=== PATIENT | male | born 1970 | race Caucasian/White ===

== ENCOUNTER 2016-09-04 17:00 | Inpatient (IN) | payer SELFPAY ==
[2016-09-04] MEDS ORDERED: NORMAL SALINE 10 ML SYRINGE FLUSH IVP PRN ×2 (17:27→21:33)
[2016-09-04] MEDS ORDERED: Sodium Chloride 0.9% 1,000 ML PRIMARY IV ONE (17:27)
[2016-09-04] MEDS ORDERED: ONDANSETRON 4 MG/2 ML VIAL IVP ONE (17:27)
[2016-09-04] MEDS ORDERED: fentaNYL Inj 100 MCG/2 ML VIAL IVP ONE (17:27)
[2016-09-04] MEDS ORDERED: LIDOCAINE HCL 2 % 10 ML JELLY URO-JECT TOPICAL ONE (17:36)
[2016-09-04 17:39] LABS: BASOPHILS # (AUTO) 0.03 10*3/UL; BASOPHILS % (AUTO) 0.2 % (0-1); EOSINOPHILS # (AUTO) 0.07 10*3/UL; EOSINOPHILS % (AUTO) 0.5 % (0-8); HEMATOCRIT 42.4 % (42.0-52.0); HEMOGLOBIN 14.8 g/dL (14.0-18.0); LYMPHOCYTES # (AUTO) 1.75 10*3/uL; MEAN CORPUSCULAR HEMOGLOBIN 27.8 PG (27-31); MEAN CORPUSCULAR HGB CONC 34.9 g/dL (33-37); MEAN CORPUSCULAR VOLUME 79.7 FL (80-90); MEAN PLATELET VOLUME 8.7 FL (7.4-12.2); MONOCYTES # (AUTO) 0.77 10*3/UL (0.3-0.8); NEUTROPHILS # (AUTO) 10.21 10*3/UL; NEUTROPHILS % (AUTO) 79.4 % (50-80); RED BLOOD COUNT 5.32 10^6/uL (4.70-6.10)
[2016-09-04 17:41] LABS: PLATELET MORPHOLOGY COMMENT NORMAL MORPHOLOGY (NORM); RBC MORPHOLOGY COMMENT NORMAL MORPHOLOGY (NORM); WBC MORPHOLOGY COMMENT NORMAL MORPHOLOGY (NORM)
[2016-09-04] MEDS ORDERED: LORazepam 2 MG/1 ML VIAL IVP ONE (17:45)
[2016-09-04 17:52] LABS: BUN/CREATININE RATIO 10.71 (6-20); CALCIUM 9.4 mg/dL (8.7-10.7); SERUM ALBUMIN 3.9 g/dL (3.5-4.8)
[2016-09-04 17:59] LABS: BILIRUBIN,URINE NEGATIVE (NEG); COLOR,URINE YELLOW; GLUCOSE, URINE (UA) NEGATIVE (NEG); NITRATE,URINE NEGATIVE (NEG); OCCULT BLOOD,URINE NEGATIVE (NEG); PH,URINE 6.5 (5.0-8.5); PROTEIN,URINE TRACE mg/dl (NEG); UROBILINOGEN,URINE 0.2 EU/dL (0.2)
[2016-09-04 18:00] LABS: CLARITY,URINE CLEAR (CLEAR)
[2016-09-04 18:11] LABS: URINE SAMPLE TYPE CATH SPECIMEN
--- NOTE | 2016-09-04 18:47 | PDOC ---
Abdomen/Flank HPI - General Chief Complaint: Abdomen Pain Stated Complaint: STOMACH CRAMPING/RECTAL PRESSURE Date Seen by Provider: 09/04/16 Time Seen by Provider: 17:20 Source: POSITIVE: Patient Exam Limitations: POSITIVE: No limitations Nurse's Notes Reviewed & Considered: Yes - History of Present Illness Initial Comments: The patient is a 46-year-old male who presents to the emergency department with abdominal pain. He states that he was diagnosed with diverticulitis about a month ago in [place]. Apparently a CT at that time showed evidence of sigmoid diverticulitis. He was treated with a course of antibiotics and pain medication and improved clinically. He had some recurrent abdominal pain and was seen in the clinic on 08/25/2016. At that time he had not wanted any further testing as he reported he did not have insurance. He was treated empirically for recurrent diverticulitis with a 2 week course of Cipro and Flagyl. He was also given a short prescription of Percocet. He states that he seemed to be improving in regard to his abdominal pain and he states that this morning he felt like "a million dollars". Sometime this early afternoon he had onset of rectal pain and pressure. He also has a sensation that he needs to urinate however has been unable to. He describes the pain as a spasm in his bladder and rectum. He does admit to a history of prostatitis in the past. He also has had a history of kidney stones. - Patient Home Medications Home Medications: Home Medications Benazepril HCl 10 mg PO DAILY tab 08/20/13 Diltiazem HCl 120 mg PO DAILY tab 08/20/13 Ciprofloxacin HCl [Cipro] 500 mg PO BID #28 tab 08/25/16 Gemfibrozil [Lopid] 600 mg PO DAILY tab 08/25/16 Metformin HCl [Metformin Hcl Er] 500 mg PO BID 08/25/16 Metronidazole [Flagyl] 500 mg PO TID #42 tab 08/25/16 - Patient Allergies Allergies/Adverse Reactions: Allergies Allergy/AdvReac Type Severity Reaction Status Date / Time No Known Allergies Allergy Verified 09/04/16 17:14 Past Medical History - heen HEENT History: Denies History Cardiovascular History: Hypertension Respiratory History: Denies History Gastrointestinal History: Denies History Genitourinary History: Denies History Endocrine History: Denies History Musculoskeletal History: Denies History Prosthesis or Implant: No Neurological History: Denies History Blood Disorders: Denies History Psychiatric History: Denies History History of Sexually Transmitted Diseases: No Cancer History: Denies History In Past Year Been Physically Harmed or Verbally Threatened: No History of MDRO: No History of Other Communicable Diseases: No Tobacco Use: Former Smoker Alcohol Use: None Substance Use Type: None Previous Surgical History: No Type / Date of Surgery: right wrist Past Medical History Reviewed: Reviewed - No Changes ROS - Limitations ROS Limitations: No Limitations Constitution: DENIES: Chills, Fever Cardiovascular: REPORTS: Denies Cardiac Symptoms Respiratory: REPORTS: Denies Resp Symptoms Neurological: REPORTS: Denies Neuro Symptoms Gastrointestinal: REPORTS: Abdominal Pain, Nausea. DENIES: Vomitting, Bloody Stools Endocrine: REPORTS: Denies Symptoms Musculoskeletal: REPORTS: Denies MS Symptoms Genitourinary: REPORTS: Dark Urine, Difficulty Urinating. DENIES: Dysuria, Hematuria Eyes: REPORTS: Denies Symptoms ENT: REPORTS: Denies Symptoms Skin: DENIES: Rash Abdominal/Flank Pain PE - General Appearance General Appearance: POSITIVE: Alert, Cooperative, No Acute Distress - HEENT HEENT: POSITIVE: Head Inspection Nml, Eyes Inspection Nml, Ears Inspection Nml, Pharynx Inspect. Nml - Neck Neck: POSITIVE: Normal Inspection - Respiratory Respiratory: POSITIVE: No Respiratory Distress, Breath Sounds Normal - Cardiovascular Cardiovascular: POSITIVE: Regular Rate and Rhythm, Heart Sounds Normal - Abdomen Abdomen: Soft: (All Quadrants), Normal Bowel Sounds: (All Quadrants), No Guarding: (All Quadrants), No Rebound: (All Quadrants), No Distention: (All Quadrants) Additional Abdominal Details: He does have tenderness in the suprapubic region, bedside ultrasound reveals a distended bladder I estimated 4-500 mL of urine. - Skin Skin: POSITIVE: Intact, No Rash - Extremities Extremity: Normal ROM: (All Extremities), Normal Inspection: (All Extremities) - Neurological Neurological: POSITIVE: Oriented X3, Motor Normal, Sensation Normal Abdomen Progress - Results Reviewed by me Xrays/CTs/US Reviewed by me: Yes Discussed with Radiologist: Yes Radiology Findings: CT scan of the abdomen and pelvis reveals inflammation of the sigmoid colon consistent with acute diverticulitis, there is evidence of perforation with localized foci of free air as well as some fluid in the pelvis with possible early abscess formation per radiologist. Lab Results Reviewed: Yes Lab Results:: Laboratory Results 09/04/16 09/04/16 Range/Units 17:30 17:45 WBC 12.87 H (4.8-10.8) 10^3/uL RBC 5.32 (4.70-6.10) 10^6/uL Hgb 14.8 (14.0-18.0) g/dL Hct 42.4 (42.0-52.0) % MCV 79.7 L (80-90) FL MCH 27.8 (27-31) PG MCHC 34.9 (33-37) g/dL RDW Std Deviation 40.9 (39-50) fL RDW Coeff of Cornel 14.1 (11.5-14.5) % Plt Count 406 H (140-350) 10*3/uL MPV 8.7 (7.4-12.2) FL Immature Gran % (Auto) 0.3 (0-5) % Neut % (Auto) 79.4 (50-80) % Lymph % (Auto) 13.6 (10-50) % Chambers % (Auto) 6.0 (5-15) % Eos % (Auto) 0.5 (0-8) % Baso % (Auto) 0.2 (0-1) % Immature Gran # (Auto) 0.04 10*3/UL Neut # (Auto) 10.21 10*3/UL Lymph # (Auto) 1.75 10*3/uL Chambers # (Auto) 0.77 (0.3-0.8) 10*3/UL Eos # (Auto) 0.07 10*3/UL Baso # (Auto) 0.03 10*3/UL WBC Morphology Comment Normal morphology (NORM) Plt Morphology Comment Normal morphology (NORM) RBC Morph Comment Normal morphology (NORM) Sodium 140 (135-145) meq/L Potassium 3.8 (3.8-5.2) meq/L Chloride 106 (98-112) meq/L Carbon Dioxide 20 L (23-33) meq/L Anion Gap 14 (5-20) BUN 15 (7-22) mg/dL Creatinine 1.4 (0.70-1.50) mg/dL Estimated GFR 55 (>60 ml/min/1.73m(2)) BUN/Creatinine Ratio 10.71 (6-20) Glucose 95 (78-110) mg/dL Calculated Osmolality 290.0 (267-292) mOsm/kg Calcium 9.4 (8.7-10.7) mg/dL Total Bilirubin 0.6 (0.3-1.2) mg/dL AST 20 L (21-57) IU/L ALT 32 (21-72) IU/L Alkaline Phosphatase 90 (38-126) IU/L C-Reactive Protein 1.0 H (0.0-0.9) mg/dL Total Protein 7.5 (6.1-8.0) g/dL Albumin 3.9 (3.5-4.8) g/dL Globulin 3.5 (2.50-4.10) g/dL Albumin/Globulin Ratio 1.10 L (1.3-2.0) mg/g Amylase 87 (30-110) U/L Lipase 95 (23-300) IU/L Ur Collection Type Cath specimen Urine Color Yellow Urine Clarity Clear (CLEAR) Urine pH 6.5 (5.0-8.5) Ur Specific [place] 1.020 (1.005-1.030) Urine Protein Trace (NEG) mg/dl Urine Glucose (UA) Negative (NEG) mg/dL Urine Ketones 15 (NEG) Urine Occult Blood Negative (NEG) Urine Nitrate Negative (NEG) Urine Bilirubin Negative (NEG) Urine Urobilinogen 0.2 (0.2) EU/dL Ur Leukocyte Esterase Negative (NEG) Ur Culture Indicated? Culture not set - Patient's Progress MDM / ED Course: On arrival the patient appeared to be uncomfortable. He states that he is unable to void after several attempts and his bladder is distended on bedside ultrasound. An IV was established. The patient refused pain medication. A [place] catheter was placed and he had approximately 300 mL of dark urine output. He remained very anxious and was hyperventilating. He was ordered Ativan however he refused this as well. His lab work reveals a slightly elevated white count at 12,000. His CT reveals evidence of sigmoid diverticulitis with contained perforation and possible early abscess formation. Dr. Blanchard was consulted from general surgery. He recommended starting the patient on Invanz 1 g IV. He evaluated the patient here in the emergency room and is admitting him for further treatment. These findings and recommendations were discussed with the patient as well and he is in agreement with current plan. - Consult Counseled: POSITIVE: Patient, RE: Lab Results, RE: Radiology Results, RE: DX, RE : Need for F/U Patient Care Time - Estimated PCT Patient Care Time (In Minutes): 45 Vital Signs - Recent Vital Signs Vital Signs: Vital Signs (Last 8 hours) Temp Pulse Resp Pulse Ox 09/04/16 17:17 97.6 F 89 18 100 - VS Reviewed Vital Signs Reviewed: Yes Discharge Clinical Impression: Diverticulitis of colon with perforation Discharge Disposition: Admit to Inpatient Condition: Fair Date Decision to Admit to Inpatient: 09/04/16 Time Decision to Admit to Inpatient: 20:30
--- NOTE | 2016-09-04 19:15 | DI ---
HISTORY: Low abdominal pain. TECHNIQUE: Contiguous axial images of the abdomen and pelvis were obtained and submitted for interpr etation. FINDINGS: CT images through the abdomen and pelvis demonstrate diffuse inflammatory changes centered at the proximal sigmoid colon. There are multiple foci of free air. There is a collection of fluid in the deep pelvis with early signs of organization. There is no free air. The liver, pancreas, gallbladder, spleen and adrenals are normal. The lung bases are clear. Medina in the urinary bladder. IMPRESSION: 1. Contained perforated acute diverticulitis with likely early abscess formation in the deep pelvis. NOTIFICATION: The above findings were phoned to Dr. Arboleda in the ER Department on 09/04/2016 at 9 :35pm EST.
[2016-09-04] MEDS ORDERED: Ertapenem Inj 1 GM in Sodium Chloride 0.9% 100 ML IV ONE (20:21)
--- NOTE | 2016-09-04 21:30 | PDOC ---
History and Physical - History of Present Illness Date and Time of Service: 09/04/2016 at 9:25 PM Chief Complaint: Diverticulitis History of Present Illness: This is a 46-year-old gentleman who has a history of diverticulitis patient is diagnosis of the end of July with diverticulitis this back his hometown I believe in [place]. He was treated with antibiotics and got better. On August 25 he was seen in the walk-in clinic and he had right lower quadrant pain. He reported this pain was very similar to where he had his diverticulitis attack previously. At that time a repeat he declined any additional workup therefore is placed on Cipro and Flagyl. Patient's tells me that the pain got worse today. It is having some rectal discomfort and also he is having some difficulty urination. Medina catheter has been placed the ER position. CT scan was done which shows he has what appears be diverticulitis. Dr. Mu Cho states that the appendix is kind of involved but he believes is secondarily inflamed. Patient may have a small abscess. There is a possible fluid collection is 3 cm in greatest diameter. This may also just represent small bowel. Patient denies any fevers or chills today. Patient tells me that he really does not want emergency surgery if he does not have to have this. He would prefer to be flown home if need be. Past Medical History Medical History: History diverticulitis. History of bipolar depression. Hypertension Tobacco Use: Former Smoker Substance Use Type: None Medication / Allergies Home Medications: Home Medications Medication Instructions Recorded Confirmed Type Benazepril HCl 10 mg PO DAILY tab 08/20/13 09/04/16 History Diltiazem HCl 120 mg PO DAILY tab 08/20/13 09/04/16 History Ciprofloxacin HCl [Cipro] 500 mg PO BID #28 tab 08/25/16 09/04/16 Clinic Gemfibrozil [Lopid] 600 mg PO DAILY tab 08/25/16 09/04/16 History Metformin HCl [Metformin Hcl Er] 500 mg PO BID 08/25/16 09/04/16 History Metronidazole [Flagyl] 500 mg PO TID #42 tab 08/25/16 09/04/16 Clinic Allergies/Adverse Reactions: Allergies Allergy/AdvReac Type Severity Reaction Status Date / Time No Known Allergies Allergy Verified 09/04/16 17:14 Review of Systems - Review of Systems -: Patient is bipolar depression. He does take metformin and diltiazem. He denies fevers. Denies blood in the stools. Nausea vomiting. Since he states is in good health. Exam - Vitals Vital Signs: Vital Signs Temperature 97.6 F Temperature Source Temporal Artery Scan Pulse Rate [Pulse Oximeter] 89 Respiratory Rate 18 Pulse Ox 100 Oxygen Delivery Method Room Air Height 5 ft 11 in Weight 106.594 kg - General General Appearance: POSITIVE: No Acute Distress, Cooperative - Eye Eye Exam: POSITIVE: EOMI - Neck Neck Exam: POSITIVE: Normal Inspection - Respiratory Respiratory Exam: POSITIVE: Clear to Auscultation - Bilaterally, Breathing Non Labored - Cardiovascular Cardiovascular Exam: POSITIVE: RRR - GI/Abdominal GI/Abdominal Exam: POSITIVE: Non Distended, Soft, Positive for RUQ Pain, No Hepatomegaly, No Splenomegaly (He stated in the right lower quadrant but has a negative Rovsing sign. No rebound or rigidity) Results - Labs CBC and BMP: 09/04/16 17:30 09/04/16 17:30 Labs - Last 24 Hours: Laboratory Results 09/04/16 09/04/16 Range/Units 17:30 17:45 WBC 12.87 H (4.8-10.8) 10^3/uL RBC 5.32 (4.70-6.10) 10^6/uL Hgb 14.8 (14.0-18.0) g/dL Hct 42.4 (42.0-52.0) % MCV 79.7 L (80-90) FL MCH 27.8 (27-31) PG MCHC 34.9 (33-37) g/dL RDW Std Deviation 40.9 (39-50) fL RDW Coeff of Cornel 14.1 (11.5-14.5) % Plt Count 406 H (140-350) 10*3/uL MPV 8.7 (7.4-12.2) FL Immature Gran % (Auto) 0.3 (0-5) % Neut % (Auto) 79.4 (50-80) % Lymph % (Auto) 13.6 (10-50) % [place] % (Auto) 6.0 (5-15) % Eos % (Auto) 0.5 (0-8) % Baso % (Auto) 0.2 (0-1) % Immature Gran # (Auto) 0.04 10*3/UL Neut # (Auto) 10.21 10*3/UL Lymph # (Auto) 1.75 10*3/uL [place]enzie # (Auto) 0.77 (0.3-0.8) 10*3/UL Eos # (Auto) 0.07 10*3/UL Baso # (Auto) 0.03 10*3/UL WBC Morphology Comment Normal morphology (NORM) Plt Morphology Comment Normal morphology (NORM) RBC Morph Comment Normal morphology (NORM) Sodium 140 (135-145) meq/L Potassium 3.8 (3.8-5.2) meq/L Chloride 106 (98-112) meq/L Carbon Dioxide 20 L (23-33) meq/L Anion Gap 14 (5-20) BUN 15 (7-22) mg/dL Creatinine 1.4 (0.70-1.50) mg/dL Estimated GFR 55 (>60 ml/min/1.73m(2)) BUN/Creatinine Ratio 10.71 (6-20) Glucose 95 (78-110) mg/dL Calculated Osmolality 290.0 (267-292) mOsm/kg Calcium 9.4 (8.7-10.7) mg/dL Total Bilirubin 0.6 (0.3-1.2) mg/dL AST 20 L (21-57) IU/L ALT 32 (21-72) IU/L Alkaline Phosphatase 90 (38-126) IU/L C-Reactive Protein 1.0 H (0.0-0.9) mg/dL Total Protein 7.5 (6.1-8.0) g/dL Albumin 3.9 (3.5-4.8) g/dL Globulin 3.5 (2.50-4.10) g/dL Albumin/Globulin Ratio 1.10 L (1.3-2.0) mg/g Amylase 87 (30-110) U/L Lipase 95 (23-300) IU/L Ur Collection Type Cath specimen Urine Color Yellow Urine Clarity Clear (CLEAR) Urine pH 6.5 (5.0-8.5) Ur Specific [place] 1.020 (1.005-1.030) Urine Protein Trace (NEG) mg/dl Urine Glucose (UA) Negative (NEG) mg/dL Urine Ketones 15 (NEG) Urine Occult Blood Negative (NEG) Urine Nitrate Negative (NEG) Urine Bilirubin Negative (NEG) Urine Urobilinogen 0.2 (0.2) EU/dL Ur Leukocyte Esterase Negative (NEG) Ur Culture Indicated? Culture not set Assessment and Plan - Patient Problems (1) Diverticulitis of colon with perforation Current Visit: Yes Status: Acute - Assessment / Plan Additional Assessment/Plan Details: At this point I do think would not will try to getting through with IV antibiotics. We'll start him on Invanz 1 g every 24 hours. Keep him nothing by mouth. I am going to have the CT scans reviewed by another radiologist and sent to invasive radiologist see if the fluid collection needs be drained. Again keeping with the patient's wish to try not to do emergency surgery therefore he can have elective surgery back in his home town. But I also told him that if the antibody therapy fails we may still need to do emergency surgery if his condition deteriorates. He understands this.
[2016-09-04] MEDS ORDERED: MORPHINE SULFATE 2 MG/1 ML IVP PRN (21:33)
[2016-09-04] MEDS: 1/2NS + 20mEq KCL 1,000 ML PRIMARY IV SCH (22:25)
[2016-09-04] MEDS: LORazepam 1 MG TABLET PO PRN (22:59)
[2016-09-04] MEDS ORDERED: GEMFIBROZIL 600 MG PO SCH (23:30)
[2016-09-04] MEDS: DILTIAZEM HCL 120 MG PO SCH (23:30)
[2016-09-04] MEDS: BENAZEPRIL HCL 10 MG PO SCH (23:30)
[2016-09-04] MEDS ORDERED: MORPHINE SULFATE 2 MG/1 ML IVP ONE (23:39)
[2016-09-05] MEDS ORDERED: ZIPRASIDONE 80 MG PO SCH (00:30)
[2016-09-05] MEDS: MORPHINE SULFATE 2 MG/1 ML IVP PRN ×4 (01:08→07:35)
[2016-09-05] MEDS: 1/2NS + 20mEq KCL 1,000 ML PRIMARY IV SCH ×2 (04:52→15:30)
[2016-09-05 05:28] LABS: BLOOD UREA NITROGEN 12 mg/dL (7-22); CALCIUM 8.4 mg/dL (8.7-10.7); EST GLOMERULAR FILTRATION > 60 (>60 ml/min/1.73m(2))
[2016-09-05 05:34] LABS: BASOPHILS # (AUTO) 0.02 10*3/UL; BASOPHILS % (AUTO) 0.1 % (0-1); EOSINOPHILS # (AUTO) 0 10*3/UL; EOSINOPHILS % (AUTO) 0 % (0-8); HEMATOCRIT 40.4 % (42.0-52.0); HEMOGLOBIN 13.8 g/dL (14.0-18.0); LYMPHOCYTES # (AUTO) 1.01 10*3/uL; MEAN CORPUSCULAR HEMOGLOBIN 27.7 PG (27-31); MEAN CORPUSCULAR HGB CONC 34.2 g/dL (33-37); MEAN PLATELET VOLUME 9.1 FL (7.4-12.2); MONOCYTES # (AUTO) 1.06 10*3/UL (0.3-0.8); MONOCYTES % (AUTO) 5.6 % (5-15); NEUTROPHILS # (AUTO) 16.81 10*3/UL; NEUTROPHILS % (AUTO) 88.4 % (50-80); PLATELET MORPHOLOGY COMMENT NORMAL MORPHOLOGY (NORM); RBC MORPHOLOGY COMMENT NORMAL MORPHOLOGY (NORM); RED BLOOD COUNT 4.99 10^6/uL (4.70-6.10); WBC MORPHOLOGY COMMENT NORMAL MORPHOLOGY (NORM)
[2016-09-05] MEDS: LORazepam 1 MG TABLET PO PRN ×2 (07:39→21:02)
--- NOTE | 2016-09-05 07:59 | PDOC(PROG) ---
Date and Time of Service: 09/06/2015 at 8:00 Interval History: Patient states his abdominal pain is basically gone. These having rectal pain and pressure. Objective : Data - Labs CBC and BMP: 09/05/16 04:42 09/05/16 04:42 Labs - Last 24 Hours: Laboratory Results 09/05/16 Range/Units 04:42 WBC 19.01 H (4.8-10.8) 10^3/uL RBC 4.99 (4.70-6.10) 10^6/uL Hgb 13.8 L (14.0-18.0) g/dL Hct 40.4 L (42.0-52.0) % MCV 81.0 (80-90) FL MCH 27.7 (27-31) PG MCHC 34.2 (33-37) g/dL RDW Std Deviation 41.8 (39-50) fL RDW Coeff of Cornel 14.4 (11.5-14.5) % Plt Count 385 H (140-350) 10*3/uL MPV 9.1 (7.4-12.2) FL Immature Gran % (Auto) 0.6 (0-5) % Neut % (Auto) 88.4 H (50-80) % Lymph % (Auto) 5.3 L (10-50) % [place] % (Auto) 5.6 (5-15) % Eos % (Auto) 0 (0-8) % Baso % (Auto) 0.1 (0-1) % Immature Gran # (Auto) 0.11 10*3/UL Neut # (Auto) 16.81 10*3/UL Lymph # (Auto) 1.01 10*3/uL [place] # (Auto) 1.06 H (0.3-0.8) 10*3/UL Eos # (Auto) 0 10*3/UL Baso # (Auto) 0.02 10*3/UL WBC Morphology Comment Normal morphology (NORM) Plt Morphology Comment Normal morphology (NORM) RBC Morph Comment Normal morphology (NORM) Sodium 138 (135-145) meq/L Potassium 4.1 (3.8-5.2) meq/L Chloride 107 (98-112) meq/L Carbon Dioxide 22 L (23-33) meq/L Anion Gap 9 (5-20) BUN 12 (7-22) mg/dL Creatinine 1.1 (0.70-1.50) mg/dL Estimated GFR > 60 (>60 ml/min/1.73m(2)) BUN/Creatinine Ratio 10.90 (6-20) Glucose 119 H (78-110) mg/dL Calculated Osmolality 286.0 (267-292) mOsm/kg Calcium 8.4 L (8.7-10.7) mg/dL - Vital Signs Vital Signs and I&O: Vital Signs - Last Taken Temperature 97.1 F 09/05/16 07:49 Pulse Rate 87 09/05/16 07:49 Respiratory Rate 20 09/05/16 07:49 Blood Pressure 98/56 09/05/16 07:49 Pulse Ox 94 09/05/16 07:49 Intake and Output (24hr x 4 totals) 09/03/16 09/04/16 09/05/16 09/06/16 05:59 05:59 05:59 05:59 Intake Total 777 Output Total 800 Balance -23 Objective : Exam - General General Appearance: No Acute Distress, Cooperative - GI/Abdominal GI/Abdominal Exam: Non Tender, Non Distended - Rectal Additional Rectal Exam Details: On rectal exam patient has an extrinsic rectal mass that can be palpated.. I believe this is the fluid collection/abscess that is seen on CT scan. Assessment and Plan - Patient Problems (1) Diverticulitis of colon with perforation Current Visit: Yes Status: Acute - Assessment / Plan Additional Assessment/Plan Details: At this point were sent of the films over to the invasive radiologist and [facility] [place]. Will get their opinion whether this can be percutaneous the drained heart transrectally drained. Meanwhile continue on IV antibiotics
[2016-09-05] MEDS ORDERED: BENAZEPRIL HCL 10 MG PO SCH (09:00)
[2016-09-05] MEDS ORDERED: DILTIAZEM 120 MG PO SCH (09:00)
[2016-09-05] MEDS ORDERED: GEMFIBROZIL 600 MG PO SCH (09:00)
[2016-09-05] MEDS: HYDROcodone-APAP 7.5 MG-325 MG TABLET PO PRN ×2 (17:10→21:02)
[2016-09-05] MEDS ORDERED: Ertapenem Inj 1 GM in Sodium Chloride 0.9% 100 ML IV SCH (19:00)
[2016-09-05] MEDS: DILTIAZEM HCL 120 MG PO SCH (21:03)
[2016-09-05] MEDS: GEMFIBROZIL 600 MG PO SCH (21:03)
[2016-09-05] MEDS: BENAZEPRIL HCL 10 MG PO SCH (21:03)
[2016-09-05] MEDS: ZIPRASIDONE 80 MG PO SCH (21:04)
[2016-09-06] MEDS: HYDROcodone-APAP 7.5 MG-325 MG TABLET PO PRN ×4 (03:28→22:11)
[2016-09-06 05:14] LABS: HEMATOCRIT 38.5 % (42.0-52.0); HEMOGLOBIN 12.6 g/dL (14.0-18.0); MEAN CORPUSCULAR HGB CONC 32.7 g/dL (33-37); MEAN CORPUSCULAR VOLUME 82.6 FL (80-90); RED BLOOD COUNT 4.66 10^6/uL (4.70-6.10)
[2016-09-06 05:25] LABS: BLOOD UREA NITROGEN 11 mg/dL (7-22); CALCIUM 8.2 mg/dL (8.7-10.7); EST GLOMERULAR FILTRATION > 60 (>60 ml/min/1.73m(2))
--- NOTE | 2016-09-06 08:52 | PDOC(PROG) ---
Date and Time of Service: 09/07/2015 at 850 Interval History: Patient states he's feeling a lot better. Objective : Data - Labs CBC and BMP: 09/06/16 04:50 09/06/16 04:50 Labs - Last 24 Hours: Laboratory Results 09/06/16 Range/Units 04:50 WBC 16.48 H (4.8-10.8) 10^3/uL RBC 4.66 L (4.70-6.10) 10^6/uL Hgb 12.6 L (14.0-18.0) g/dL Hct 38.5 L (42.0-52.0) % MCV 82.6 (80-90) FL MCH 27.0 (27-31) PG MCHC 32.7 L (33-37) g/dL RDW Std Deviation 43.6 (39-50) fL RDW Coeff of Cornel 14.6 H (11.5-14.5) % Plt Count 331 (140-350) 10*3/uL MPV 9.0 (7.4-12.2) FL Sodium 137 (135-145) meq/L Potassium 3.5 L (3.8-5.2) meq/L Chloride 106 (98-112) meq/L Carbon Dioxide 21 L (23-33) meq/L Anion Gap 10 (5-20) BUN 11 (7-22) mg/dL Creatinine 1.1 (0.70-1.50) mg/dL Estimated GFR > 60 (>60 ml/min/1.73m(2)) BUN/Creatinine Ratio 10.00 (6-20) Glucose 104 (78-110) mg/dL Calculated Osmolality 282.0 (267-292) mOsm/kg Calcium 8.2 L (8.7-10.7) mg/dL - Vital Signs Vital Signs and I&O: Vital Signs - Last Taken Temperature 97.6 F 09/06/16 07:19 Pulse Rate 81 09/06/16 07:19 Respiratory Rate 17 09/06/16 07:19 Blood Pressure 104/61 09/06/16 07:19 Pulse Ox 93 09/06/16 07:19 Intake and Output (24hr x 4 totals) 09/04/16 09/05/16 09/06/16 09/07/16 05:59 05:59 05:59 05:59 Intake Total 777 2439 320 Output Total 800 1280 Balance -23 1159 320 Objective : Exam - General General Appearance: No Acute Distress, Cooperative - GI/Abdominal GI/Abdominal Exam: Non Tender, Non Distended, Soft Additional GI/Abdominal Exam Details: Patient has a transgluteal catheter. Draining some serosanguineous fluid Assessment and Plan - Patient Problems (1) Diverticulitis of colon with perforation Current Visit: Yes Status: Acute - Assessment / Plan Additional Assessment/Plan Details: Continue antibiotics. Flush catheter every 8 hours with saline
[2016-09-06] MEDS ORDERED: METFORMIN 500 MG PO SCH (09:00)
[2016-09-06] MEDS: GEMFIBROZIL 600 MG PO SCH ×2 (09:31→21:23)
[2016-09-06] MEDS: LORazepam 1 MG TABLET PO PRN ×2 (12:53→22:11)
[2016-09-06] MEDS: Ertapenem Inj 1 GM in Sodium Chloride 0.9% 100 ML IV SCH (17:51)
[2016-09-06] MEDS: METFORMIN 500 MG PO SCH (21:24)
[2016-09-06] MEDS: ZIPRASIDONE 80 MG PO SCH (21:24)
[2016-09-06] MEDS: BENAZEPRIL HCL 10 MG PO SCH (21:25)
[2016-09-06] MEDS: DILTIAZEM HCL 120 MG PO SCH (21:26)
[2016-09-07] MEDS ORDERED: Sodium Chloride 0.9% 1,000 ML PRIMARY IV ONE (02:10)
[2016-09-07 05:08] LABS: HEMATOCRIT 34.2 % (42.0-52.0); HEMOGLOBIN 11.3 g/dL (14.0-18.0); MEAN CORPUSCULAR HEMOGLOBIN 27.4 PG (27-31); MEAN CORPUSCULAR VOLUME 82.8 FL (80-90); RED BLOOD COUNT 4.13 10^6/uL (4.70-6.10)
[2016-09-07] MEDS: HYDROcodone-APAP 7.5 MG-325 MG TABLET PO PRN ×4 (05:55→19:45)
[2016-09-07] MEDS: LORazepam 1 MG TABLET PO PRN ×2 (05:56→21:18)
--- NOTE | 2016-09-07 11:52 | PDOC(PROG) ---
Date and Time of Service: 09/07/2016 at 1153 Interval History: Patient states he's feeling better. Objective : Data - Labs CBC and BMP: 09/07/16 04:51 09/06/16 04:50 Labs - Last 24 Hours: Laboratory Results 09/07/16 Range/Units 04:51 WBC 14.16 H (4.8-10.8) 10^3/uL RBC 4.13 L (4.70-6.10) 10^6/uL Hgb 11.3 L (14.0-18.0) g/dL Hct 34.2 L (42.0-52.0) % MCV 82.8 (80-90) FL MCH 27.4 (27-31) PG MCHC 33.0 (33-37) g/dL RDW Std Deviation 42.0 (39-50) fL RDW Coeff of Cornel 14.3 (11.5-14.5) % Plt Count 296 (140-350) 10*3/uL MPV 9.0 (7.4-12.2) FL - Vital Signs Vital Signs and I&O: Vital Signs - Last Taken Temperature 98.5 F 09/07/16 09:00 Pulse Rate 83 09/07/16 09:00 Respiratory Rate 20 09/07/16 09:00 Blood Pressure 115/64 09/07/16 09:00 Pulse Ox 93 09/07/16 09:00 Intake and Output (24hr x 4 totals) 09/05/16 09/06/16 09/07/16 09/08/16 05:59 05:59 05:59 05:59 Intake Total 777 2439 4035 120 Output Total 800 1280 923 Balance -23 1159 3112 120 Objective : Exam - General General Appearance: No Acute Distress, Cooperative - GI/Abdominal GI/Abdominal Exam: Non Tender, Non Distended, Soft Additional GI/Abdominal Exam Details: Still draining small bowel amount of purulent material from his drain Assessment and Plan - Patient Problems (1) Diverticulitis of colon with perforation Current Visit: Yes Status: Acute - Assessment / Plan Additional Assessment/Plan Details: Continued to drain and IV antibiotics
[2016-09-07] MEDS: Ertapenem Inj 1 GM in Sodium Chloride 0.9% 100 ML IV SCH (17:45)
[2016-09-07] MEDS: GEMFIBROZIL 600 MG PO SCH (21:14)
[2016-09-07] MEDS: BENAZEPRIL HCL 10 MG PO SCH (21:15)
[2016-09-07] MEDS: METFORMIN 500 MG PO SCH (21:15)
[2016-09-07] MEDS: DILTIAZEM HCL 120 MG PO SCH (21:17)
[2016-09-07] MEDS: ZIPRASIDONE 80 MG PO SCH (21:17)
[2016-09-08] MEDS: HYDROcodone-APAP 7.5 MG-325 MG TABLET PO PRN ×6 (00:26→22:11)
[2016-09-08 07:48] LABS: BASOPHILS # (AUTO) 0.02 10*3/UL; BASOPHILS % (AUTO) 0.2 % (0-1); EOSINOPHILS # (AUTO) 0.17 10*3/UL; HEMATOCRIT 35.5 % (42.0-52.0); HEMOGLOBIN 11.7 g/dL (14.0-18.0); LYMPHOCYTES # (AUTO) 1.59 10*3/uL; MEAN CORPUSCULAR HEMOGLOBIN 27.2 PG (27-31); MEAN CORPUSCULAR VOLUME 82.6 FL (80-90); MEAN PLATELET VOLUME 9.2 FL (7.4-12.2); MONOCYTES # (AUTO) 0.63 10*3/UL (0.3-0.8); MONOCYTES % (AUTO) 7.5 % (5-15); NEUTROPHILS # (AUTO) 6.01 10*3/UL; NEUTROPHILS % (AUTO) 71.3 % (50-80)
[2016-09-08 07:49] LABS: PLATELET MORPHOLOGY COMMENT NORMAL MORPHOLOGY (NORM); RBC MORPHOLOGY COMMENT NORMAL MORPHOLOGY (NORM); WBC MORPHOLOGY COMMENT NORMAL MORPHOLOGY (NORM)
[2016-09-08] MEDS: LORazepam 1 MG TABLET PO PRN ×2 (10:09→22:11)
--- NOTE | 2016-09-08 12:46 | PDOC(PROG) ---
Date and Time of Service: 09/08/2016 at 1250 Interval History: Patient is doing fine. Had minimal drainage from his LAURA. He's not running fevers. Objective : Data - Labs CBC and BMP: 09/08/16 07:27 09/06/16 04:50 Labs - Last 24 Hours: Laboratory Results 09/08/16 Range/Units 07:27 WBC 8.44 (4.8-10.8) 10^3/uL RBC 4.30 L (4.70-6.10) 10^6/uL Hgb 11.7 L (14.0-18.0) g/dL Hct 35.5 L (42.0-52.0) % MCV 82.6 (80-90) FL MCH 27.2 (27-31) PG MCHC 33.0 (33-37) g/dL RDW Std Deviation 42.6 (39-50) fL RDW Coeff of Cornel 14.4 (11.5-14.5) % Plt Count 349 (140-350) 10*3/uL MPV 9.2 (7.4-12.2) FL Immature Gran % (Auto) 0.2 (0-5) % Neut % (Auto) 71.3 (50-80) % Lymph % (Auto) 18.8 (10-50) % [place] % (Auto) 7.5 (5-15) % Eos % (Auto) 2.0 (0-8) % Baso % (Auto) 0.2 (0-1) % Immature Gran # (Auto) 0.02 10*3/UL Neut # (Auto) 6.01 10*3/UL Lymph # (Auto) 1.59 10*3/uL [place] # (Auto) 0.63 (0.3-0.8) 10*3/UL Eos # (Auto) 0.17 10*3/UL Baso # (Auto) 0.02 10*3/UL WBC Morphology Comment Normal morphology (NORM) Plt Morphology Comment Normal morphology (NORM) RBC Morph Comment Normal morphology (NORM) - Vital Signs Vital Signs and I&O: Vital Signs - Last Taken Temperature 97.9 F 09/08/16 11:03 Pulse Rate 83 09/08/16 11:03 Respiratory Rate 16 09/08/16 11:03 Blood Pressure 118/61 09/08/16 11:03 Pulse Ox 96 04/06/17 11:03 Intake and Output (24hr x 4 totals) 09/06/16 09/07/16 09/08/16 09/09/16 05:59 05:59 05:59 05:59 Intake Total 2439 4035 2800 Output Total 1280 923 70 15 Balance 1159 3112 2730 -15 Objective : Exam - General General Appearance: No Acute Distress - GI/Abdominal GI/Abdominal Exam: Normal Bowel Sounds, Non Tender Assessment and Plan - Patient Problems (1) Diverticulitis of colon with perforation Current Visit: Yes Status: Acute - Assessment / Plan Additional Assessment/Plan Details: Patient is doing very well. Tomorrow morning we will pull his drain and he'll be a little be discharged home. I believe one do a few more days of IV antibiotic therapy but this can be done as an outpatient. He should be ready travel by Monday.
--- NOTE | 2016-09-08 12:51 | PDOC(PROG) ---
General Note Progress Note: To Whom It May Concern: In regards to Ayo Briggs Patient had a perforated bowel. He needs to fly back to [place] so he can have definitive treatment. This would have be considered a emergency/ urgent medical condition. He himself is stable enough to fly. Dr. Hiram Blanchard Patient Problems - Patient Problem List (1) Diverticulitis of colon with perforation Current Visit: Yes Status: Acute
[2016-09-08] MEDS: Ertapenem Inj 1 GM in Sodium Chloride 0.9% 100 ML IV SCH (16:03)
[2016-09-08] MEDS: DILTIAZEM HCL 120 MG PO SCH (22:11)
[2016-09-08] MEDS: BENAZEPRIL HCL 10 MG PO SCH (22:12)
[2016-09-08] MEDS: ZIPRASIDONE 80 MG PO SCH (22:12)
[2016-09-08] MEDS: GEMFIBROZIL 600 MG PO SCH (22:21)
[2016-09-08] MEDS: METFORMIN 500 MG PO SCH (22:22)
[2016-09-09] MEDS: HYDROcodone-APAP 7.5 MG-325 MG TABLET PO PRN ×3 (02:02→11:35)
[2016-09-09 08:41] VITALS: RESP 20
[2016-09-09] MEDS: LORazepam 1 MG TABLET PO PRN (08:56)
--- NOTE | 2016-09-09 09:28 | DCSUMMARY ---
Discharge Summary Admit Date: 09/04/16 Discharge Date: 09/09/16 Admitting Diagnosis: perforated diverticulitis with abscess Discharge Diagnosis: Perforated diverticulitis with abscess Primary Surgery and Date: 09/05/[address]-guided drainage of abscess Hospital Course: This is a 44-year-old gentleman who tames in with perforated diverticulitis with abscess. He was started on IV Invanz. He has some abdominal tenderness but this resolved after a few hours of IV antibiotics. He just had some rectal pain. We able to get him over to the invasive radiologist who did a transgluteal percutaneous aspiration and drainage of the abscess on September 05. He was continued on IV antibiotics until his white count normalized on September 08. He had another dose in the hospital on September 09 and the drain was pulled. He will come in for outpatient IV antibiotics on September 10 and his complete of 41 week of IV antibiotics. He then will be switched to oral antibiotics Augmentin 875 one every 12 hours for another 14 days. The patient lives in [place] and on Monday or Monday he'll fly back to [place]. He will establish with his primary care doctor who is been helping with the diverticulitis (patient had the diagnosis of diverticulitis in July 2016, before coming to [place]). He would like have surgery at [facility] Exam - Vitals Vital Signs: Vital Signs Temperature 98.2 F Temperature Source Temporal Artery Scan Pulse Rate [Apical] 84 Pulse Rate [Pulse Oximeter] 96 Respiratory Rate 20 Blood Pressure [Left Arm] 122/69 Blood Pressure 113/74 Pulse Ox 95 Oxygen Delivery Method Room Air Height 5 ft 11 in Weight 99.609 kg - General General Appearance: POSITIVE: No Acute Distress, Cooperative - GI/Abdominal GI/Abdominal Exam: POSITIVE: Normal Bowel Sounds, Non Tender, Non Distended, Soft (Drain was removed. He had a little discharge from the drain site after removing the drain. They should stop drain spontaneously in 24-48 hours.) Patient Problems - Patient Problem List (1) Diverticulitis of colon with perforation Current Visit: Yes Status: Acute
[2016-09-09] MEDS ORDERED: Ertapenem Inj 1 GM in Sodium Chloride 0.9% 100 ML IV SCH (14:00)
[2016-09-09 14:30] VITALS: TEMP 97.4
== END 2016-09-09 14:59 | disposition home or self-care (01) | DRG 392 ==
LOC: ER 17:00 → MED/SURG 21:16
PROVIDERS: ADMIT Surgery; ATTEND Surgery
DX: K57.80 Diverticulitis of intestine, part unspecified, with perforation and abscess without bleeding (principal); L02.818 Cutaneous abscess of other sites
CPT/HCPCS: 36415; 74177; 80048; 80053; 81003; 82150; 83690; 85025; 85027; 86140; 96361; 96365; 99285; J1335; J2060; J2270; J7030; J7050